=== PATIENT | female | born 2000 | race Caucasian/White ===

== ENCOUNTER → 2020-01-25 18:02 | Outpatient (BNVA) | payer MEDICAID, SELFPAY | PROVIDERS: Family Provider Family Medicine; Visit Provider Nurse Practitioner | DX: J06.9 Acute upper respiratory infection, unspecified (principal) | CPT/HCPCS: 87635 ==

== ENCOUNTER → 2021-06-12 14:20 | Outpatient (BNVA) | payer MEDICAID, SELFPAY | PROVIDERS: Family Provider Family Medicine; Visit Provider Nurse Practitioner Family | DX: Z72.0 Tobacco use (principal); Z20.822 Contact with and (suspected) exposure to COVID-19; Z71.6 Tobacco abuse counseling | CPT/HCPCS: 87635 ==

== ENCOUNTER 2024-04-17 19:46 | Inpatient (IN) | payer SELFPAY ==
[2024-04-17 19:50] VITALS: BP 146/97; PULSE 114; RESP 18; TEMP 36.8; O2SAT 99
--- NOTE | 2024-04-17 20:00 | ECG_ITS ---
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
--- NOTE | 2024-04-17 20:00 | XRR_ITS ---
PROCEDURE INFORMATION: Exam: XR Chest Exam date and time: 04/17/2024 8:15 PM Age: 23 years old Clinical indication: Pain; Other: HTN; Additional info: Hypertension TECHNIQUE: Imaging protocol: Radiologic exam of the chest. Views: 1 view. COMPARISON: No relevant prior studies available. FINDINGS: Lungs: Unremarkable. No consolidation. Pleural spaces: Unremarkable. No pleural effusion. No pneumothorax. Heart/Mediastinum: Unremarkable. No cardiomegaly. Bones/joints: Unremarkable. XR/XR chest 1V portable [id number] IMPRESSION: No acute findings.
--- NOTE | 2024-04-17 20:27 | ED.C_ITS ---
Documented by User: Monico Pike DO 04/18/24 02:56 HPI - Psych 2 General: Chief Complaint: Psychiatric Symptoms Stated Complaint: SI Time Seen by Provider: 04/17/24 19:56 History of Present Illness: Patient presents to the ER with suicidal thoughts patient is been mentally rough the last little while in she has not been the best place mentally. Patient says she did use meth 2 days ago and she is having intermittent thoughts throughout the day especially when she driving her car about just running off the road and taking her own life. Patient is never been treated inpatient before but is willing to go this time. Related Data Home Medications Medication Instructions Recorded Confirmed No Known Home Medications 04/18/24 04/18/24 Allergies Allergy/AdvReac Type Severity Reaction Status Date / Time No Known Allergies Allergy Verified 04/17/24 19:55 Review of Systems 2 General: Reports: 10 or more systems reviewed and unremarkable except in HPI and below PFSH ED 2 PFSH: Social History Smoking and tobacco/nicotine status: current some day tobacco/nicotine user Physical Exam 2 Const: COMMON NORMALS: no acute distress, average body habitus, patient oriented x3, no limitations, healthy appearing, alert and well nourished HENMT: COMMON NORMALS: normocephalic, atraumatic, hearing grossly normal bilaterally, external ears normal, Normal external nose present and moist oral mucous membranes HEAD & SCALP: normocephalic and atraumatic NOSE: Normal external nose present EXTERNAL EAR: Yes external ears normal Neck/C-Spine: COMMON NORMALS: no JVD Chest: COMMONS NORMALS: normal inspection of the chest and normal palpation of entire chest wall Resp: COMMON NORMALS: normal respiratory effort, No retractions, No use of accessory muscles and clear to auscultation bilaterally AUSCULTATION: clear to auscultation bilaterally Cardio: COMMON NORMALS: no JVD, regular rate, regular rhythm, S1 normal heart sound present, S2 normal heart sound present, No gallops present (Cardio), No clicks present (Cardio), No murmurs present (Cardio) and No rub (Cardio) R ATE: regular rate RHYTHM: regular rhythm HEART SOUNDS: S1 normal heart sound present and S2 normal heart sound present GI: COMMON NORMALS: Normal to inspection, nondistended, normoactive bowel sounds present, Soft to palpation, non-tender, No hepatosplenomegaly present and no masses PALPATION: Yes Soft to palpation and Yes No hepatosplenomegaly present Neuro: COMMON NORMALS: patient oriented x3 SENSORIUM/ORIENTATION: Yes alert Course 2 Vital Signs: Vital signs: Vital Signs Temperature 98.4 F 04/18/24 15:22 Pulse Rate 88 04/18/24 15:22 Respiratory Rate 16 04/18/24 15:22 Blood Pressure 146/88 04/18/24 15:22 Pulse Oximetry 97 04/18/24 15:22 Oxygen Delivery Me thod Room Air 04/18/24 15:22 MDM - Psych Medical Decision Making Patient will be worked up in standard medical clearance once medically cleared anticipate we will start calling around to the appropriate psychiatric facilities trying her transferred. We do not have any beds here at our facility at this time. Differential Diagnosis Likely suicidal ideation and depression Medical Records I reviewed the patient's medical records. Lab Data I reviewed the patient's lab results. 04/17/24 20:26 04/17/24 20:26 Radiology Impressions Chest X-Ray 04/17/24 20:00 IMPRESSION: No acute findings. Laboratory Results WBC 8.89 10^3/uL (3.29-11.43) 04/17/24 20: RBC 4.42 10^6/uL (3.85-5.65) 04/17/24 20: Hgb 8.90 g/dL (11.27-16.99) L 04/17/24 20: Hct 31.8 % (36-47) L 04/17/24 20: MCV 71.9 fl (85-98) L 04/17/24 20: MCH 20.1 pg (27-33) L 04/17/24 20: MCHC 28.0 g/dL (30-55) L 04/17/24 20: RDW 16.8 % (12.1-15.1) H 04/17/24 20: Plt Count 351 10^3/cmm (157-399) 04/17/24 20: MPV 9.4 fL (7.4-10.4) 04/17/24 20: Neut % (Auto) 64.0 % 04/17/24 20: Lymph % (Auto) 27.3 % 04/17/24 20:26 [place] % (Auto) 6.3 % 04/17/24 20: Eos % (Auto) 1.0 % 04/17/24 20: Baso % (Auto) 1.0 % 04/17/24 20: Neut # (Auto) 5.68 10^3/uL (1.8-7.7) 04/17/24 20: Lymph # (Auto) 2.4 10^3/uL (0.8-4.8) 04/17/24 20: [place] # (Auto) 0.6 10^3/uL (0.2-0.9) 04/17/24 20: Eos # (Auto) 0.1 10^3/uL (0.0-0.8) 04/17/24 20: Baso # (Auto) 0.1 10^3/uL (0.0-0.1) 04/17/24 20: Nucleated RBC % (auto) 0 % 04/17/24 20: Nucleated RBCs # 0.0 /100WBC 04/17/24 20: Sodium 138 mmol/L (136-145) 04/17/24 20: Potassium 4.3 mmol/L (3.5-5.1) 04/17/24 20: Chloride 104 mmol/L (98-107) 04/17/24 20: Carbon Dioxide 24 mmol/L (22-29) 04/17/24 20: Anion Gap 14.3 (5-19) 04/17/24 20: BUN 9 mg/dL (6-20) 04/17/24 20: Creatinine 0.9 mg/dL (0.5-0.9) 04/17/24 20: GFR Calculation 77.6 mL/min (90-130) L 04/17/24 20: Glucose 81 mg/dL (65-115) 04/17/24 20: Calculated Osmolality 284 mOsm/kg (285-295) L 04/17/24 20: Calcium 8.0 mg/dL (8.5-10.5) L 04/17/24 20: Total Bilirubin 0.2 mg/dL (0.15-1.2) 04/17/24 20: AST 20 U/L (0-32) 04/17/24 20: ALT 44 U/L (0-33) H 04/17/24 20: Alkaline Phosphatase 87 U/L (35-105) 04/17/24 20: Total Protein 6.8 g/dL (6.6-8.7) 04/17/24 20: Albumin 3.8 g/dL (3.5-5.2) 04/17/24: Globulin 3.0 g/dL (1.3-4.6) 04/17/24 20: TSH 2.97 uIU/mL (0.27-4.20) 04/17/24 20: HCG, Qual Negative (Negative) 04/17/24 Urine Color Yellow (Yellow) 04/17/24: Urine Appearance Clear (CLEAR) 04/17/24: Urine pH 5.5 (5-7) 04/17/24: Ur Specific [place] 1.018 (1.005-1.030) 04/17/24: Urine Protein Negative (Negative) 04/17/24: Urine Glucose (UA) Negative (Normal) 04/17/24 Urine Ketones Trace (Negative) 04/17/24: Urine Blood 3+ (Negative) A 04/17/24 Urine Nitrate Negative (Negative) 04/17/24: Urine Bilirubin Negative (Negative) 04/17/24: Urine Urobilinogen 1.0 mg/dL (Negative) 04/17/24: Ur Leukocyte Esterase 1+ (Negative) A 04/17/24: Urine RBC 3-5 /hpf (0-2) 04/17/24: Urine WBC 6-10 /hpf (0-5) 04/17/24: Ur Squamous Epith Cells 0-5 /hpf (0-5) 04/17/24 Amorphous Sediment Not Reportable 04/17/24: Urine Bacteria 1+ /hpf (NONE) H 04/17/24: Hyaline Casts 0-4 /lpf H 04/17/24: Salicylates < 0.3 mg/dL (3-10) L 11/18/24 20:26 Urine Opiates Screen Negative ng/mL (Negative) 04/17/24 20:31 Acetaminophen < 5.0 ug/mL (10-30) L 04/17/24 20:26 Ur Barbiturates Screen Negative ng/mL (Negative) 04/17/24 20:31 Ur Phencyclidine Scrn Negative ng/mL (Negative) 04/17/24 20:31 Ur Amphetamines Screen Positive ng/mL (Negative) H 04/17/24 20:31 U Benzodiazepines Scrn Negative ng/mL (Negative) 04/17/24 20:31 Urine Cocaine Screen Negative ng/mL (Negative) 04/17/24 20:31 U Marijuana (THC) Screen Positive ng/mL (Negative) H 04/17/24 20:31 Ethyl Alcohol < 10 mg/dL (0-10) 04/17/24 20:26 Coronavirus (PCR) Negative (Negative) 04/17/24 20:31 Influenza A (PCR) Negative (Negative) 04/17/24 20:31 Influenza Type B (PCR) Negative (Negative) 04/17/24 20:31 RSV (PCR) Negative (Negative) 04/17/24 20:31 All radiology interpretation(s) finalized by discharge Discharge Plan Discharge Patient Disposition: Admitted As Inpatient Admit Provider: Dago Hoyos Clinical Impression: Suicidal ideation, Depression Condition: Stable Sign Out Sign Out Data: Patient Sign Out occurred on 04/18/24 at 06:58. Patient's care was discussed, and care was transferred from Monico Pike DO to Torres Bangura DO. Coding Level of Care Code ED Steward/Stewardess Dining Room for Chg Fwd Documented by User: Torres Bangura DO 04/18/24 16:24 HPI - Psych 2 General: Chief Complaint: Psychiatric Symptoms Stated Complaint: SI Time Seen by Provider: 04/17/24 19:56 Related Data Home Medications Medication Instructions Recorded Confirmed No Known Home Medications 11/19/24 11/19/24 Allergies Allergy/AdvReac Type Severity Reaction Status Date / Time No Known Allergies Allergy Verified 04/17/24 19:55 PFSH ED 2 PFSH: Social History Smoking and tobacco/nicotine status: current some day tobacco/nicotine user Course 2 Vital Signs: Vital signs: Vital Signs Temperature 98.4 F 04/18/24 15:22 Pulse Rate 88 04/18/24 15:22 Respiratory Rate 16 04/18/24 15:22 Blood Pressure 146/88 04/18/24 15:22 Pulse Oximetry 97 04/18/24 15:22 Oxygen Delivery Me thod Room Air 04/18/24 15:22 MDM - Psych Medical Decision Making Patient will be worked up in standard medical clearance once medically cleared anticipate we will start calling around to the appropriate psychiatric facilities trying her transferred. We do not have any beds here at our facility at this time. Care assumed at change of shift initially we had been working for a bed to transfer out to bed became available and around facility of Dr. Dr. Block he agreed except patient patient placed on 96-hour hold for suicidal ideation Lab Data 04/17/24 20:26 04/17/24 20:26 Radiology Impressions Chest X-Ray 04/17/24 20:00 IMPRESSION: No acute findings. Laboratory Results WBC 8.89 10^3/uL (3.29-11.43) 04/17/24 20: RBC 4.42 10^6/uL (3.85-5.65) 04/17/24 20: Hgb 8.90 g/dL (11.27-16.99) L 04/17/24 20: Hct 31.8 % (36-47) L 04/17/24 20: MCV 71.9 fl (85-98) L 04/17/24 20: MCH 20.1 pg (27-33) L 04/17/24 20: MCHC 28.0 g/dL (30-55) L 04/17/24 20: RDW 16.8 % (12.1-15.1) H 04/17/24 20:26 Plt Count 351 10^3/cmm (157-399) 04/17/24 20: MPV 9.4 fL (7.4-10.4) 04/17/24 20: Neut % (Auto) 64.0 % 04/17/24 20: Lymph % (Auto) 27.3 % 04/17/24 20: [place] % (Auto) 6.3 % 04/17/24 20: Eos % (Auto) 1.0 % 04/17/24 20: Baso % (Auto) 1.0 % 04/17/24 20: Neut # (Auto) 5.68 10^3/uL (1.8-7.7) 04/17/24 20: Lymph # (Auto) 2.4 10^3/uL (0.8-4.8) 04/17/24 20: [place] # (Auto) 0.6 10^3/uL (0.2-0.9) 04/17/24 20: Eos # (Auto) 0.1 10^3/uL (0.0-0.8) 04/17/24 20: Baso # (Auto) 0.1 10^3/uL (0.0-0.1) 04/17/24 20: Nucleated RBC % (auto) 0 % 04/17/24 20: Nucleated RBCs # 0.0 /100WBC 04/17/24 20: Sodium 138 mmol/L (136-145) 04/17/24 20: Potassium 4.3 mmol/L (3.5-5.1) 04/17/24 20: Chloride 104 mmol/L (98-107) 04/17/24 20: Carbon Dioxide 24 mmol/L (22-29) 04/17/24 20: Anion Gap 14.3 (5-19) 04/17/24 20: BUN 9 mg/dL (6-20) 04/17/24 20: Creatinine 0.9 mg/dL (0.5-0.9) 04/17/24 20: GFR Calculation 77.6 mL/min (90-130) L 04/17/24 20: Glucose 81 mg/dL (65-115) 04/17/24 20: Calculated Osmolality 284 mOsm/kg (285-295) L 04/17/24: Calcium 8.0 mg/dL (8.5-10.5) L 04/17/24 20:26 Total Bilirubin 0.2 mg/dL (0.15-1.2) 04/17/24 20: AST 20 U/L (0-32) 04/17/24 20: ALT 44 U/L (0-33) H 04/17/24 20: Alkaline Phosphatase 87 U/L (35-105) 04/17/24 20: Total Protein 6.8 g/dL (6.6-8.7) 04/17/24: Albumin 3.8 g/dL (3.5-5.2) 04/17/24: Globulin 3.0 g/dL (1.3-4.6) 04/17/24: TSH 2.97 uIU/mL (0.27-4.20) 04/17/24 20: HCG, Qual Negative (Negative) 04/17/24: Urine Color Yellow (Yellow) 04/17/24: Urine Appearance Clear (CLEAR) 04/17/24: Urine pH 5.5 (5-7) 04/17/24: Ur Specific [place] 1.018 (1.005-1.030) 04/17/24: Urine Protein Negative (Negative) 04/17/24: Urine Glucose (UA) Negative (Normal) 04/17/24: Urine Ketones Trace (Negative) 04/17/24: Urine Blood 3+ (Negative) A 04/17/24: Urine Nitrate Negative (Negative) 04/17/24: Urine Bilirubin Negative (Negative) 04/17/24: Urine Urobilinogen 1.0 mg/dL (Negative) 04/17/24: Ur Leukocyte Esterase 1+ (Negative) A 04/17/24: Urine RBC 3-5 /hpf (0-2) 04/17/24: Urine WBC 6-10 /hpf (0-5) 04/17/24 20: Ur Squamous Epith Cells 0-5 /hpf (0-5) 04/17/24 20: Amorphous Sediment Not Reportable 04/17/24: Urine Bacteria 1+ /hpf (NONE) H 04/17/24: Hyaline Casts 0-4 /lpf H 04/17/24 20:31 Salicylates < 0.3 mg/dL (3-10) L 04/17/24 20:26 Urine Opiates Screen Negative ng/mL (Negative) 04/17/24 20:31 Acetaminophen < 5.0 ug/mL (10-30) L 04/17/24 20:26 Ur Barbiturates Screen Negative ng/mL (Negative) 04/17/24 20:31 Ur Phencyclidine Scrn Negative ng/mL (Negative) 04/17/24 20:31 Ur Amphetamines Screen Positive ng/mL (Negative) H 04/17/24 20:31 U Benzodiazepines Scrn Negative ng/mL (Negative) 04/17/24 20:31 Urine Cocaine Screen Negative ng/mL (Negative) 04/17/24 20:31 U Marijuana (THC) Screen Positive ng/mL (Negative) H 04/17/24 20:31 Ethyl Alcohol < 10 mg/dL (0-10) 04/17/24 20:26 Coronavirus (PCR) Negative (Negative) 04/17/24 20:31 Influenza A (PCR) Negative (Negative) 04/17/24 20:31 Influenza Type B (PCR) Negative (Negative) 04/17/24 20:31 RSV (PCR) Negative (Negative) 04/17/24 20:31 Discharge Plan Discharge Patient Disposition: Admitted As Inpatient Admit Provider: Dago Hoyos Clinical Impression: Suicidal ideation, Depression Condition: Stable Sign Out Sign Out Data: Patient Sign Out occurred on 04/18/24 at 06:58. Patient's care was discussed, and care was transferred from Monico Pike DO to Torres Bangura DO. Coding Level of Care Code ED Steward/Stewardess Dining Room for Kwaku Ibarra
[2024-04-17 20:38] LABS: Basophils # 0.1 10^3/uL (0.0-0.1); Eosinophils # 0.1 10^3/uL (0.0-0.8); Hematocrit 31.8 % (36-47); Lymphocytes # 2.4 10^3/uL (0.8-4.8); Lymphocytes % 27.3 %; Mean Corpuscular Hemoglobin 20.1 pg (27-33); Mean Corpuscular Volume 71.9 fl (85-98); Mean Platelet Volume 9.4 fL (7.4-10.4); Monocytes # 0.6 10^3/uL (0.2-0.9); Monocytes % 6.3 %; Neutrophils # 5.68 10^3/uL (1.8-7.7); Nucleated Red Blood Cells % 0 %; Platelet Count 351 10^3/cmm (157-399); Red Blood Count 4.42 10^6/uL (3.85-5.65); Red Cell Distribution Width 16.8 % (12.1-15.1); White Blood Count 8.89 10^3/uL (3.29-11.43)
[2024-04-17 20:39] LABS: HCG Qualitative Urine. Negative (Negative)
[2024-04-17 20:44] LABS: Bilirubin Urine Negative (Negative); Blood Urine 3+ (Negative); Glucose Urine UA Negative (Normal); Ketones Urine Trace (Negative); Leukocyte Esterase Urine 1+ (Negative); Nitrate Urine Negative (Negative); Protein Urine Negative (Negative); Specific Gravity, Urine 1.018 (1.005-1.030); Urine Appearance Clear (CLEAR); Urine Color Yellow (Yellow); pH Urine 5.5 (5-7)
[2024-04-17 20:49] LABS: Add Urine Microscopic? YES; Bacteria Urine 1+ /hpf; Hyaline Casts Urine 0-4 /lpf; Squamous Epithelial Cell Urine 0-5 /hpf (0-5)
[2024-04-17 20:53] LABS: Amphetamines Screen Urine Positive (Negative); Barbiturates Screen Urine Negative (Negative); Benzodiazepines Screen Urine Negative (Negative); Cocaine Screen Urine Negative (Negative); Opiate Screen Urine Negative (Negative); PCP Screen Urine Negative (Negative); THC Screen Urine Positive (Negative)
[2024-04-17 20:56] LABS: Add Urine Culture? Yes
[2024-04-17 21:11] LABS: Alanine Aminotransferase 44 U/L (0-33); Albumin Level 3.8 g/dL (3.5-5.2); Alkaline Phosphatase 87 U/L (35-105); Anion Gap 14.3 (5-19); Aspartate Amino Transferase 20 U/L (0-32); Blood Urea Nitrogen 9 mg/dL (6-20); Carbon Dioxide 24 mmol/L (22-29); Chloride 104 mmol/L (98-107); Creatinine Clr Calc Pharmacy 140.2601; Glomerular Filtration Rate 77.6 mL/min (90-130); Glucose 81 mg/dL (65-115); Osmolality Calculated 284 mOsm/kg (285-295); Potassium 4.3 mmol/L (3.5-5.1); Sodium 138 mmol/L (136-145); Thyroid Stimulating Hormone 2.97 uIU/mL (0.27-4.20); Total Bilirubin 0.2 mg/dL (0.15-1.2); Total Protein 6.8 g/dL (6.6-8.7)
[2024-04-17 21:13] LABS: Acetaminophen < 5.0 ug/mL (10-30); Alcohol Level < 10 mg/dL (0-10); Salicylate < 0.3 mg/dL (3-10)
[2024-04-17 21:22] LABS: Covid PCR NEGATIVE (Negative); Influenza A NEGATIVE (Negative); Influenza B NEGATIVE (Negative); Respiratory Syncytial Virus Ce NEGATIVE (Negative)
[2024-04-17 22:03] VITALS: BP 142/93; PULSE 102; RESP 16; O2SAT 99
[2024-04-18] VITALS: BP 137/84; PULSE 87; RESP 14; O2SAT 99
--- NOTE | 2024-04-18 13:15 | PC.NURSE ---
96 hr rights reviewed with patient @1210 with assistance of [facility] staff nuclear weapons officer Jarad. All education reviewed. Patient verbalized understanding to hold process. Patient copy left @bedside with patient. No further needs at this time.
[2024-04-18 15:22] VITALS: BP 146/88; PULSE 88; RESP 16; TEMP 36.9; O2SAT 97
--- NOTE | 2024-04-18 15:37 | PC.NURSE ---
ADMISSION PT WAS ADMITTED FROM THE ED AT 1505. PT IS ON A 96 HOUR HOLD ENDING ON 04/24 @1205. PT STATES SHE HAS HAD SUICIDAL THOUGHTS FOR MANY YEARS. PT ENDORSES HAVING AUDITORY HALLUCINATIONS (HEARING HER NAME BEING CALLED). PT USES MARIJUANA, ALCOHOL AND METHAMPHETAMINE. PT WAS DRIVING AND THOUGHT ABOUT DRIVING OFF OF THE ROAD BUT CURRENTLY DENIES ANY PLAN.
[2024-04-18] MEDS: trazodone 50 mg Tablet PO (20:14)
[2024-04-18 20:19] VITALS: BP 136/94; PULSE 93; RESP 18; TEMP 36.8; O2SAT 100
[2024-04-19 06:00] VITALS: BP 120/81; PULSE 103; RESP 16; TEMP 36.7; O2SAT 100
[2024-04-19 14:00] VITALS: BP 120/75; PULSE 110; RESP 16; TEMP 36.6; O2SAT 100
--- NOTE | 2024-04-19 14:36 | P.NPUHP_ITS ---
Providers/Chief Complaint 2 Admitting Physician: Dago Hoyos MD Chief Complaint: SI HPI NPU History of Present Illness Erin Paulino is a 23 year old female who presented to the emergency department on 04/18/2024 with complaints of suicidal thoughts and reporting that she had been having intermittent thoughts of wanting to drive her car off the road for the past 3 days. She had endorsed having never been hospitalized for psychiatric reasons. She had admitted to the use of methamphetamine and marijuana for the past few days. She was admitted to the neuropsychiatric unit for further evaluation and treatment. Patient had reported that she has had periods of depression since early adolescence and has had periods of hypomania with increased energy, increased spending, increased risk-taking behaviors, and excess euphoria lasting 1 to 2 days that began in early adulthood. She reports having frequent cycling in her mood. She reports that her mood appears to be more depressed during the winter months. She reports wanting to stay in bed all day and reports that she often does not feel rested. She reports often having feelings of hopelessness and reports having periods of increased tearfulness that may last for several weeks. She reports her current depressive episode has been present for at least 2 weeks and endorses anhedonia and difficulties with concentrating and diminished energy. Patient had reported some feelings of loneliness. She reports no history of self-injurious behavior. She reports that she had previously been using alcohol and states that she had recently begun the use of methamphetamine approximately 3 years ago. She had reported recent stress from having been charged with a DUI in July 2023. Patient had denied any current history of psychotic symptoms although she had reported that sometimes she hears her own voice. She had denied any history of any recent paranoia. She had denied any history of racing thoughts during her hypomanic episode but did report a history of decreased need for sleep during that time. She denies any history of binge eating episodes. She reports no change in weight. She does report some diminished appetite. She also reports having difficulties with managing her anxiety with some agoraphobia noted. Inpatient psychiatric history: None reported Outpatient psychiatric history: None Substance abuse history: see above, no hx of ETOH withdrawal, seizures, blackouts, hx of methamphetamine use for 3 years and THC use for several years. Medical history: None Surgical history: None Allergies: Nickel Current medications: None Legal history: Recent charge of DUI in 2024. No history of other incarceration. Family psychiatric history: Mother had been diagnosed with an anxiety disorder and sister has been diagnosed with depression. Social history: Patient has no history of developmental delays and reported being a good student at school. She had reported no clear history of sexual physical or emotional abuse. She reports that she was raised by her both of her parents who had split up during the middle of her childhood. She reports having an older sister and a younger brother and having 3 half brothers from her dad's current marriage. She reports having graduated high school. She reports that she is currently not engaged in any relationships and has no children. 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 Meds NPU Home Medications Medication Instructions Recorded Confirmed Last Taken Type No Known Home Medications 04/18/24 04/18/24 Unknown History Allergies Allergy/AdvReac Type Severity Reaction Status Date / Time No Known Allergies Allergy Verified 04/17/24 19:55 PFSH NPU 2 PFSH: Social History Smoking and tobacco/nicotine status: current some day tobacco/nicotine user Mental Status Exam 2 MSE Comments: Patient is a casually dressed overweight female who appeared her stated age who was friendly and cooperative on interview. There was no evidence of any abnormal involuntary motor movements, tics, or tremors appreciated. Her speech was normal in regards to rate rhythm and prosody. Her thought process was linear logical and goal-directed. Her thought content showed evidence of suicidal ideation as she acknowledged plan to run her car off the road. She denied any homicidal ideation. She did not appear to be responding to internal stimuli. There was no clear evidence of delusional thinking. She was alert and oriented person place time and situation. Her recent and remote memory were grossly intact. Her mood was described as depressed. Her affect was restricted in range and mood congruent. Her insight was poor. Her judgment was poor. Her impulse control appeared limited at this time. Vitals/I&O/Wt Last Vital Signs Temp 98.0 F 04/19/24 06:00 Pulse 103 H 04/19/24 06:00 Resp 16 04/19/24 06:00 BP 120/81 04/19/24 06:00 Pulse Ox 100 04/19/24 06:00 O2 Del Method Room Air 04/18/24 15:22 Weight last 48 hrs Weight 136.078 kg Data NPU 04/17/24 20:26 04/17/24 20:26 Micro: Microbiology 04/17/24 20:31 Urine Culture - Preliminary Urine,Clean Catch Microbiology 04/17/24 20:31 Urine,Clean Catch Urine Culture - Preliminary A&P Assessment and plan (1) Depression: Qualifiers: Depression Type: unspecified Qualified Code(s): F32.A - Depression, unspecified (2) Suicidal ideation: (3) Bipolar 2 disorder, major depressive episode: Plan 23-year-old female who presents with symptoms suggestive of bipolar 2 disorder currently depressed admitted with suicidal ideation with no previous history of medication trials or any outpatient or inpatient treatment. She reports substance abuse including alcohol and marijuana along with methamphetamine use over the past few years as well. #1.? Engage patient in individual milieu and group therapy. #2?? Recommend sober living treatment at the highest level of care to which the patient is willing to commit. #3??? Will start Latuda to target bipolar depression. Consider lamotrigine. #4?? TO-15 minute checks? #5?? Will attempt to gather collateral information Involuntary Hold Information 2 96 Hour Hold: 96 Hour Involuntary Admission: Yes 96 Hour Hold Ending Date: 04/24/24 96 Hour Hold Ending Time: 12:05 Attestations NPU 2 Medical Necessity Statement*: Inpatient hospitalization is medically necessary and deemed to ?be ?the clinically appropriate intervention ?at this time.? We will monitor/initiate medications and make changes as indicated.? The patient will be in the hospital for over 2 midnights.? The patient?s likely length of stay 5-7 days. Coding Level of Care Code Acute Code for [facility] Fwd Diagnoses Depression F32.A Depression Type: unspecified Suicidal ideation R45.851 Bipolar 2 disorder, major depressive episode F31.81
[2024-04-19] MEDS: lurasidone 80 mg Tablet 40 MG PO (17:28)
[2024-04-19 19:39] VITALS: BP 122/79; PULSE 124; RESP 16; TEMP 36.5; O2SAT 95
[2024-04-19] MEDS: trazodone 50 mg Tablet PO (20:17)
[2024-04-20 06:00] VITALS: BP 116/73; PULSE 95; RESP 15; TEMP 36.4; O2SAT 100
--- NOTE | 2024-04-20 13:24 | P.NPUPN_ITS ---
Subjective NPU 2 Subjective: 23-year-old female admitted with suicida l ideation with a history of bipolar 2 disorder. Patient had continued to endorse depressed mood. She had reported minimal motivation to consider substance abuse treatment stating that she had not been using methamphetamine much . She had reported a history of cycling between periods of low energy and high energy along with periods of feeling excessively tired. She had reported a lack of overall self-care stating that she had not seen a doctor of any kind in several years. She had reported feeling frequently fatigued. She had continued to isolate herself on the milieu. She had reported feeling anxious and continued to endorse some fleeting suicidal thoughts. She had expressed interest in receiving further psychotherapy. Mental Status Exam 2 MSE Comments: Patient is a casually dressed overweight female who appeared her stated age who was friendly and cooperative on interview. There was no evidence of any abnormal involuntary motor movements, tics, or tremors appreciated. Her speech was normal in regards to rate rhythm and prosody. Her thought process was linear logical and goal-directed. Her thought content showed evidence of suicidal ideation with no plan endorsed today. She denied any homicidal ideation. She did not appear to be responding to internal stimuli. There was no clear evidence of delusional thinking. She was alert and oriented person, place, time, and situation. Her recent and remote memory were grossly intact. Her mood was described as depressed. Her affect was restricted in range and mood congruent. Her insight was poor. Her judgment was poor. Her impulse control appeared limited at this time. Vitals/I&O/Wt Last Vital Signs Temp 97.5 F L 04/20/24 06:00 Pulse 95 04/20/24 06:00 Resp 15 04/20/24 06:00 BP 116/73 04/20/24 06:00 Pulse Ox 100 04/20/24 06:00 O2 Del Method Room Air 04/20/24 06:00 Data NPU 04/17/24 20:26 04/17/24 20:26 Micro: Microbiology 04/17/24 20:31 Urine Culture - Final Urine,Clean Catch Microbiology 04/17/24 20:31 Urine,Clean Catch Urine Culture - Final A&P Assessment and plan (1) Depression: Qualifiers: Depression Type: unspecified Qualified Code(s): F32.A - Depression, unspecified (2) Suicidal ideation: (3) Bipolar 2 disorder, major depressive episode: Plan 23-year-old female who presents with symptoms suggestive of bipolar 2 disorder currently depressed admitted with suicidal ideation with no previous history of medication trials or any outpatient or inpatient treatment. She reports substance abuse including alcohol and marijuana along with methamphetamine use over the past few years as well. #1.? Engage patient in individual milieu and group therapy. #2?? Recommend sober living treatment at the highest level of care to which the patient is willing to commit. #3???Continue Latuda 40mg at 7PM, Patient agreeable to [facility] with digital therapeutic application for substance abuse treatment. #4?? TO-15 minute checks? #5?? Will attempt to gather collateral information Involuntary Hold Information 2 96 Hour Hold: 96 Hour Involuntary Admission: Yes 96 Hour Hold Ending Date: 04/24/24 96 Hour Hold Ending Time: 12:05 Other Hold: Hold End Date: 04/24/24 Attestations NPU 2 Medical Necessity Statement*: Inpatient hospitalization is medically necessary and deemed to ?be ?the clinically appropriate intervention ?at this time.? We will monitor/initiate medications and make changes as indicated.?? The patient?s likely length of stay 2-3 days. Coding Level of Care Code Acute Code for [facility] Fwd Diagnoses Depression F32.A Depression Type: unspecified Suicidal ideation R45.851 Bipolar 2 disorder, major depressive episode F31.81
[2024-04-20 14:00] VITALS: BP 126/74; PULSE 78; RESP 16; TEMP 36.9; O2SAT 98
[2024-04-20] MEDS: lurasidone 80 mg Tablet 40 MG PO (17:14)
[2024-04-20 20:03] VITALS: BP 119/71; PULSE 103; RESP 18; TEMP 36.3; O2SAT 99
[2024-04-21 06:00] VITALS: BP 107/76; PULSE 93; RESP 16; TEMP 36.8; O2SAT 95
[2024-04-21 13:38] VITALS: BP 129/82; PULSE 115; RESP 16; TEMP 36.8; O2SAT 99
--- NOTE | 2024-04-21 14:05 | W.PM.NPUDCS ---
Diagnoses at Discharge Discharge Diagnosis (1) Depression: Status: Acute Qualifiers: Depression Type: unspecified Qualified Code(s): F32.A - Depression, unspecified (2) Suicidal ideation: Status: Acute (3) Bipolar 2 disorder, major depressive episode: Status: Acute Reason for Visit Reason for Visit: SI Brief History: History of Present Illness Erin Paulino is a 23 year old female who presented to the emergency department on 04/18/2024 with complaints of suicidal thoughts and reporting that she had been having intermittent thoughts of wanting to drive her car off the road for the past 3 days. She had endorsed having never been hospitalized for psychiatric reasons. She had admitted to the use of methamphetamine and marijuana for the past few days. She was admitted to the neuropsychiatric unit for further evaluation and treatment. Patient had reported that she has had periods of depression since early adolescence and has had periods of hypomania with increased energy, increased spending, increased risk-taking behaviors, and excess euphoria lasting 1 to 2 days that began in early adulthood. She reports having frequent cycling in her mood. She reports that her mood appears to be more depressed during the winter months. She reports wanting to stay in bed all day and reports that she often does not feel rested. She reports often having feelings of hopelessness and reports having periods of increased tearfulness that may last for several weeks. She reports her current depressive episode has been present for at least 2 weeks and endorses anhedonia and difficulties with concentrating and diminished energy. Patient had reported some feelings of loneliness. She reports no history of self-injurious behavior. She reports that she had previously been using alcohol and states that she had recently begun the use of methamphetamine approximately 3 years ago. She had reported recent stress from having been charged with a DUI in July 2023. Patient had denied any current history of psychotic symptoms although she had reported that sometimes she hears her own voice. She had denied any history of any recent paranoia. She had denied any history of racing thoughts during her hypomanic episode but did report a history of decreased need for sleep during that time. She denies any history of binge eating episodes. She reports no change in weight. She does report some diminished appetite. She also reports having difficulties with managing her anxiety with some agoraphobia noted. Inpatient psychiatric history: None reported Outpatient psychiatric history: None Substance abuse history: see above, no hx of ETOH withdrawal, seizures, blackouts, hx of methamphetamine use for 3 years and THC use for several years. Medical history: None Surgical history: None Allergies: Nickel Current medications: None Legal history: Recent charge of DUI in 2023. No history of other incarceration. Family psychiatric history: Mother had been diagnosed with an anxiety disorder and sister has been diagnosed with depression. Social history: Patient has no history of developmental delays and reported being a good student at school. She had reported no clear history of sexual physical or emotional abuse. She reports that she was raised by her both of her parents who had split up during the middle of her childhood. She reports having an older sister and a younger brother and having 3 half brothers from her dad's current marriage. She reports having graduated high school. She reports that she is currently not engaged in any relationships and has no children. 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 Additionally, there was a general medical evaluation which was also within normal limits and revealed no new acute processes.? At the time of discharge, lethality was denied and psychosis was absent. ? Mood and anxiety were well managed.? The patient endorsed a plan to avoid all drugs of abuse and follow up with the aftercare recommendations of the treatment team.? The patient was evaluated and deemed to be absent credible lethality and had achieved the maximum benefit from an inpatient hospitalization, and so was discharged. ?The patient was started on Latuda for treatment of bipolar depression with improved mood noted over the next two days. She had presented with a history of hypomanic symptoms and a substantial history of major depressive episodes as well. She had expressed interest in receiving outpatient psychotherapy as well as medication management on an outpatient basis. Involuntary Hold Information 96 Hour Hold: 96 Hour Involuntary Admission: Yes 96 Hour Hold Ending Date: 04/24/24 96 Hour Hold Ending Time: 12:05 Other Hold: Hold End Date: 04/24/24 Mental Status Exam MSE Comments: Patient is a casually dressed overweight female who appeared her stated age who was friendly and cooperative on interview. There was no evidence of any abnormal involuntary motor movements, tics, or tremors appreciated. Her speech was normal in regards to rate rhythm and prosody. Her thought process was linear logical and goal-directed. Her thought content showed evidence of suicidal ideation with no plan endorsed today. She denied any homicidal ideation. She did not appear to be responding to internal stimuli. There was no clear evidence of delusional thinking. She was alert and oriented person, place, time, and situation. Her recent and remote memory were grossly intact. Her mood was described as good. Her affect was euthymic at the time of discharge. Her insight was poor. Her judgment was improving. Her impulse control appeared fair. Discharge Data Studies Completed and Pending: Completed Studies During Hospitalization Category Date Time Status XR chest 1V bang ble [id number] Stat Exams 04/17/24 20:00 Completed Radiology Impressions Chest X-Ray 04/17/24 20:00 IMPRESSION: No acute findings. Laboratory Results WBC 8.89 10^3/uL (3.2 9-11.43) 04/17/24 20: RBC 4.42 10^6/uL (3.8 5-5.65) 04/17/24 20: Hgb 8.90 g/dL (11.27- 16.99) L 04/17/24 20: Hct 31.8 % (36-47) L 04/17/24 20: MCV 71.9 fl (85-98) L 04/17/24 20: MCH 20.1 pg (27-33) L 04/17/24 20: MCHC 28.0 g/dL (30-55) L 04/17/24 20: RDW 16.8 % (12.1-15.1 ) H 04/17/24 20: Plt Count 351 10^3/cmm (157 -399) 04/17/24 20: MPV 9.4 fL (7.4-10.4) 04/17/24 20: Neut % (Auto) 64.0 % 04/17/24 20: Lymph % (Auto) 27.3 % 04/17/24 20: Reynolds % (Auto) 6.3 % 04/17/24 20: Eos % (Auto) 1.0 % 04/17/24 20: Baso % (Auto) 1.0 % 04/17/24 20: Neut # (Auto) 5.68 10^3/uL (1.8 -7.7) 04/17/24 20: Lymph # (Auto) 2.4 10^3/uL (0.8- 4.8) 04/17/24 20:26 Reynolds # (Auto) 0.6 10^3/uL (0.2- 0.9) 04/17/24 20: Eos # (Auto) 0.1 10^3/uL (0.0- 0.8) 04/17/24 20:26 Baso # (Auto) 0.1 10^3/uL (0.0- 0.1) 04/17/24 20: Nucleated RBC % (a uto) 0 % 04/17/24 20: Nucleated RBCs # 0.0 /100WBC 04/17/24 20: Sodium 138 mmol/L (136-1 45) 04/17/24 20: Potassium 4.3 mmol/L (3.5-5 .1) 04/17/24 20: Chloride 104 mmol/L (98-10 7) 04/17/24 20: Carbon Dioxide 24 mmol/L (22-29) 04/17/24 20: Anion Gap 14.3 (5-19) 04/17/24 20: BUN 9 mg/dL (6-20) 04/17/24 20: Creatinine 0.9 mg/dL (0.5-0. 9) 04/17/24 20: GFR Calculation 77.6 mL/min (90-1 30) L 04/17/24 20: Glucose 81 mg/dL (65-115) 04/17/24 20:26 Calculated Osmolal ity 284 mOsm/kg (285- 295) L 04/17/24 20: Calcium 8.0 mg/dL (8.5-10 .5) L 04/17/24 20: Total Bilirubin 0.2 mg/dL (0.15-1 .2) 04/17/24 20: AST 20 U/L (0-32) 04/17/24 20: ALT 44 U/L (0-33) H 04/17/24 20: Alkaline Phosphata se 87 U/L (35-105) 04/17/24 20: Total Protein 6.8 g/dL (6.6-8.7 ) 04/17/24 20: Albumin 3.8 g/dL (3.5-5.2 ) 04/17/24 20: Globulin 3.0 g/dL (1.3-4.6 ) 04/17/24: TSH 2.97 uIU/mL (0.27 -4.20) 04/17/24 20: HCG, Qual Negative (Negati ve) 04/17/24 20: Urine Color Yellow (Yellow) 04/17/24: Urine Appearance Clear (CLEAR) 04/17/24 Urine pH 5.5 (5-7) 04/17/24: Ur Specific Gravit y 1.018 (1.005-1.0 30) 04/17/24: Urine Protein Negative (Negati ve) 04/17/24 Urine Glucose (UA) Negative (Normal ) 04/17/24 Urine Ketones Trace (Negative) 04/17/24: Urine Blood 3+ (Negative) A 04/17/24 Urine Nitrate Negative (Negati ve) 04/17/24 Urine Bilirubin Negative (Negati ve) 04/17/24: Urine Urobilinogen 1.0 mg/dL (Negati ve) 04/17/24 20: Ur Leukocyte Corry ase 1+ (Negative) A 04/17/24 Urine RBC 3-5 /hpf (0-2) 04/17/24: Urine WBC 6-10 /hpf (0-5) 04/17/24: Ur Squamous Epith Cells 0-5 /hpf (0-5) 04/17/24: Amorphous Sediment Not Reportable 04/17/24: Urine Bacteria 1+ /hpf (NONE) H 04/17/24 Hyaline Casts 0-4 /lpf H 04/17/24: Salicylates < 0.3 mg/dL (3-10 ) L 04/17/24: Urine Opiates Scre en Negative ng/mL (N egative) 04/17/24: Acetaminophen < 5.0 ug/mL (10-3 0) L 04/17/24 20: Ur Barbiturates Sc reen Negative ng/mL (N egative) 04/17/24 Ur Phencyclidine S crn Negative ng/mL (N egative) 04/17/24 20:31 Ur Amphetamines Sc reen Positive ng/mL (N egative) H 04/17/24 20:31 U Benzodiazepines Scrn Negative ng/mL (N egative) 04/17/24 20:31 Urine Cocaine Scre en Negative ng/mL (N egative) 04/17/24 20:31 U Marijuana (THC) Screen Positive ng/mL (N egative) H 04/17/24 20:31 Ethyl Alcohol < 10 mg/dL (0-10) 04/17/24 20:26 Coronavirus (PCR) Negative (Negati ve) 04/17/24 20:31 Influenza A (PCR) Negative (Negati ve) 04/17/24 20:31 Influenza Type B ( PCR) Negative (Negati ve) 04/17/24 20:31 RSV (PCR) Negative (Negati ve) 04/17/24 20:31 Vitals: Last Vital Signs Temp 98.3 F 04/21/24 13:38 Pulse 115 H 04/21/24 13:38 Resp 16 04/21/24 13:38 BP 129/82 04/21/24 13:38 Pulse Ox 99 04/21/24 13:38 O2 Del Method Room Air 04/21/24 13:38 Discharge Plan Discharge Patient Disposition: Home Condition: Stable Prescriptions: New lurasidone 40 mg tablet 40 mg PO 1800 30 Days Qty: 30 1RF No Action No Known Home Medications Discharge Orders: Discharge Order (Routine); Ordered 04/21/24 Ordered By: Dago Hoyos Referrals: [facility] [Other] - 05/09/24 9:00 am (Intake appointment with Mynor Vidal, therapist with [facility]. Bring in your completed paperwork. Call [phone] for any questions.) [facility] [Other] [facility] [Outside] - 04/25/24 7:30 am (Initial appointment with Edilma. ) Cierra Adames FNP [Nurse Practitioner] - 04/25/24 2:00 pm ([facility] care hospital follow up. ) Discharge Diet: Usual diet Discharge Activity: Resume usual activity Patient Instructions: Lurasidone (By mouth), Bipolar Disorder (DC), Suicide Prevention (DC), Opioid Safety Discharge Attestations NPU Time Spent in Discharge Care*: less than 30 min Specific Discharge Activities: Specific discharge activities: educating patient, discussing with mattress spring encaser/social workers/dc planners and documenting/other paperwork Coding Level of Care Code Acute Code for [facility] Fwd Diagnoses Depression F32.A Depression Type: unspecified Suicidal ideation R45.851 Bipolar 2 disorder, major depressive episode F31.81
[2024-04-21 14:11] VITALS: BP 128/82; PULSE 98; RESP 16; TEMP 36.7; O2SAT 98
== END 2024-04-21 15:30 | disposition home or self-care (01) | DRG 885 ==
LOC: ER 04-18 06:58 → NP 04-18 14:54
PROVIDERS: Emergency Medicine; Admitting Provider Psychiatry & Neurology Psychiatry; Emergency Provider Family Medicine; Visit Provider Psychiatry & Neurology Psychiatry
DX: F31.81 Bipolar II disorder (principal); R45.851 Suicidal ideations; F15.90 Other stimulant use, unspecified, uncomplicated; F12.90 Cannabis use, unspecified, uncomplicated; F17.200 Nicotine dependence, unspecified, uncomplicated; Z81.8 Family history of other mental and behavioral disorders
CPT/HCPCS: 0241U; 36415; 71045; 80053; 80306; 80307; 81001; 81025; 84443; 85025; 87086; 93005; 97150; 97165; 99285

== ENCOUNTER → 2024-06-06 11:31 | Outpatient (BNVA) | payer BC, SELFPAY | PROVIDERS: PCP Nurse Practitioner Family; Visit Provider Nurse Practitioner Psychiatric/Mental Health | DX: Z79.899 Other long term (current) drug therapy (principal) | CPT/HCPCS: 80053; 80061; 80307; 83036; 85025 ==

== ENCOUNTER → 2024-12-05 14:17 | Outpatient (BNVA) | payer OTHER, SELFPAY ==
[2024-09-20 14:59] VITALS: BP 145/98; BMI 54.7
== END ==
PROVIDERS: PCP Nurse Practitioner Family
DX: M25.472 Effusion, left ankle (principal)
CPT/HCPCS: 73610